=== PATIENT | male | born 1955 | race Caucasian/White ===

== ENCOUNTER 2018-05-23 20:50 | Emergency (ER) | payer OTHER ==
[~2018-05-23] VITALS: Ht 177.8 cm; Wt 90.7 kg
[2018-05-23 21:01] VITALS: Ht 177.8 cm; Wt 90.7 kg
[2018-05-23 22:12] VITALS: BP 117/73
== END 2018-05-23 22:12 | disposition home or self-care (01) ==
LOC: ED 20:50
DX: S01.511A Laceration without foreign body of lip, initial encounter (principal); Z90.89 Acquired absence of other organs; W54.0XXA Bitten by dog, initial encounter; Y93.89 Activity, other specified; Y92.89 Other specified places as the place of occurrence of the external cause; Y99.8 Other external cause status
CPT/HCPCS: 90715; J2001